=== PATIENT | male | born 1960 | race Asian ===

== ENCOUNTER 2021-11-18 20:47 | Emergency (ER) | payer SELFPAY ==
[~2021-11-18] VITALS: Ht 172.7 cm; Wt 91.6 kg
[2021-11-18 22:17] VITALS: BP 160/82
--- NOTE | 2021-11-18 22:17 | NUR ---
PT BIBS FOR C/O L FIFTH DIGIT PAIN. PT A/OX4. TOLERATING R/A WELL WITH NO SOB
[2021-11-18] MEDS ORDERED: CLOT15CR27 TP (22:48)
--- NOTE | 2021-11-18 22:59 | NUR ---
Patient discharged to home in stable condition. Written and verbal after care instructions given. Patient verbalizes understanding of instruction. PT ambulatory with a steady gait
== END 2021-11-18 23:10 | disposition home or self-care (01) ==
LOC: ER 20:50
DX: M79.675 Pain in left toe(s) (principal)